=== PATIENT | female | born 1940 | race African-American/Black ===

== ENCOUNTER → 2019-12-13 20:46 | Outpatient (CLI) | payer MEDICARE ==
[2014-04-26 14:54] VITALS: BMI 44.0
[~2019-12-13 20:46] MED LIST: GABAPENTIN100 MG PO; LISINOPRIL10 MG PO; PRILOSEC20 MG PO; SINGULAIR10 MG PO; SYNTHROID112 MCG PO; ULTRAM50 MG PO; ZYRTEC10 MG PO; [UNRECOGNIZED DRUG - OTHER] EACH EYE
== END | disposition home or self-care (01) ==
LOC: D.LABREF 20:46
PROVIDERS: ATTEND Urology
DX: R82.90 Unspecified abnormal findings in urine (principal)

== ENCOUNTER 2020-03-21 08:57 | Day surgery (SDC) | payer MEDICARE ==
[2020-03-20 17:48] LABS: HEMATOCRIT 32.7 % (36.0-48.0); HEMOGLOBIN 10.6 g/dL (12-16); MCH 30.9 pg (26.0-34.0); MCHC 32.4 g/dL (31.0-37.0); MCV 95.3 fL (80.0-100.0); MEAN PLATELET VOLUME 10.6 fL (7.4-10.4); RBC 3.43 10x6/uL (4.00-5.40); RDW 13.1 % (11.5-14.5); WBC 5.7 10x3/uL (4.8-10.8)
[~2020-03-21] VITALS: Ht 157.5 cm; Wt 108.4 kg
[~2020-03-21 08:57] MED LIST changes: +AZELASTINE137 MCG/0. NASAL; +CENTRUM SILVER1 EAC3 PO; +FUROSEMIDE20 MG PO; +PEPCID AC20 MG PO
[2020-03-21 09:26] VITALS: BP 154/73; Ht 157.5 cm; Wt 108.4 kg
--- NOTE | 2020-03-21 15:34 | NUR ---
1300 IV REMOVED AND PRESSURE HELD. 1325 PT DISCHARGED INSTRUCTIONS GIVEN AND PT VOIDED X1
--- NOTE | 2020-03-22 12:55 | OP ---
PATIENT NAME: ZANDRA MANCUSO MEDICAL RECORD: [id number] :40 LOCATION:D.OPS ADMISSION DATE: SURGEON: MERRILL JOSEPH MD DATE OF OPERATION: 03/21/2020 SURGEON: Merrill Joseph MD ANESTHESIA: TIVA by Lyudmila Thomas CRNA DIAGNOSIS: Urge urine incontinence. PROCEDURES: Cystoscopy and intravesical Botox injection 200 units. FINDINGS: Single ureteral orifices bilaterally with no bladder tumors. BLOOD LOSS: None. CLINICAL HISTORY: This is a 79-year-old female with severe urge urinary incontinence. She has tried multiple oral medications, had multiple trials of InterStim, and had 100 units of Botox injected by Dr. Grossman without success. She comes now for a trial of 200 units of Botox injected into the bladder. SHE HAS MULTIPLE DRUG ALLERGIES, and she was given clindamycin and gentamicin radiology transcriptionist to the OR. DESCRIPTION OF PROCEDURE: The patient was given IV sedation. She was placed in the lithotomy position and prepped and draped. A 21-Mexican cystoscope with 30-degree lens was used for visualization. No bladder tumors were seen. At 20 different locations, 1 mL of Botox solution was injected. Each mL of Botox solution has 10 units of Botox dissolved within it. The total dose is 200 units of Botox. We avoided the ureteral orifices on the trigone. Once all the injections were done, the patient was brought to the preoperative holding area. I will see her in followup in 1 month's time. TRANSINT:[id number] Voice Confirmation ID: [id number] DOCUMENT ID: [id number] MERRILL JOSEPH MD at 1255 CC: [id number] DICTATION DATE: 03/21/20 1205 [employer] ENGINEER: 03/21/20 2226 [facility] 03/21/20 [place] [id number] [place] [id number]
== END 2020-03-21 13:25 | disposition home or self-care (01) ==
LOC: D.OPS 08:57 → D.PAN 10:30 → D.OPS 13:25
PROVIDERS: Anesthesiology; ATTEND Urology
DX: N39.41 Urge incontinence (principal)

== ENCOUNTER 2020-10-08 10:16 | Emergency (ER) | payer MEDICARE, MEDICAID ==
[~2020-10-08] VITALS: Ht 157.5 cm; Wt 106.4 kg
[2020-10-08 10:22] VITALS: Ht 157.5 cm; Wt 106.4 kg
[2020-10-08 11:16] LABS: CALC OSMOLALITY 288 mosm/kg (275-300); CALCIUM 8.7 mg/dL (8.5-10.1); CARBON DIOXIDE 29.3 mmol/L (21.0-32.0); CHLORIDE - SERUM 107 mmol/L (98-107); CREATININE - SERUM 1.4 mg/dL (0.6-1.3); GLUCOSE 97 mg/dL (74-106); POTASSIUM - SERUM 3.9 mmol/L (3.5-5.1); SODIUM 142 mmol/L (136-145); UREA NITROGEN 30 mg/dL (7-18); eGFR NON AFRICAN AMERICAN 38 mL/min (90-120)
[2020-10-08 11:19] LABS: BASOPHILS 1.2 % (0-2); EOSINOPHILS 6.7 % (0-7); HEMATOCRIT 31.2 % (36.0-48.0); LYMPHOCYTE ABS# 1.75 10x3/uL (1.18-3.74); LYMPHOCYTES 41.9 % (15-50); MCH 30.6 pg (26.0-34.0); MCHC 32.1 g/dL (31.0-37.0); MCV 95.4 fL (80.0-100.0); MEAN PLATELET VOLUME 10.2 fL (7.4-10.4); MONOCYTES 7.2 % (2-11); PLATELET COUNT 179 10x3/uL (130-400); RBC 3.27 10x6/uL (4.00-5.40); RDW 12.6 % (11.5-14.5); WBC 4.2 10x3/uL (4.8-10.8)
[2020-10-08 11:33] LABS: ALBUMIN 3.4 g/dL (3.4-5.0); ALKALINE PHOSPHATASE 72 U/L (30-120); ALT (SGPT) 18 U/L (10-68); BILIRUBIN - TOTAL 0.37 mg/dL (0.2-1.3); CKMB 1.9 U/L (0.0-3.6); CREATINE KINASE 343 UL (21-215); PRO BNP 67 pg/mL (0-450); PROTEIN - SERUM 6.7 g/dL (6.4-8.2)
[2020-10-08 11:36] LABS: INR 1.17 (0.85-1.17); PROTIME 13.8 SECONDS (11.6-15.0)
[2020-10-08 11:41] LABS: TROPONIN-I < 0.017 ng/mL (0.000-0.060)
[2020-10-08 12:37] VITALS: BP 126/80
== END 2020-10-08 13:58 | disposition home or self-care (01) ==
LOC: D.ER 10:16
PROVIDERS: Family Medicine
DX: R04.2 Hemoptysis (principal); I11.0 Hypertensive heart disease with heart failure; I50.9 Heart failure, unspecified; J44.9 Chronic obstructive pulmonary disease, unspecified; K21.9 Gastro-esophageal reflux disease without esophagitis; G62.9 Polyneuropathy, unspecified

== ENCOUNTER → 2020-11-19 11:40 | Outpatient (CLI) | payer MEDICARE, MEDICAID ==
[2020-10-08 10:22] VITALS: BMI 42.9
== END | disposition home or self-care (01) ==
LOC: D.US 11:30
PROVIDERS: ATTEND Emergency Medicine
DX: E04.9 Nontoxic goiter, unspecified (principal)